=== PATIENT | female | born 1945 | race African-American/Black ===

== ENCOUNTER 2020-05-06 00:34 | Outpatient (CLI) | payer MEDICARE, SELFPAY ==
[2020-05-06 17:26] LABS: SARS-CoV-2 RNA PCR Negative
== END 2020-05-06 00:35 | disposition home or self-care (01) ==
LOC: ANHCOVIDDT 00:34
PROVIDERS: PCP Family Medicine; Visit Provider Internal Medicine Gastroenterology
DX: Z01.812 Encounter for preprocedural laboratory examination (principal); Z20.828 Contact with and (suspected) exposure to other viral communicable diseases
CPT/HCPCS: 87635; C9803; U0003

== ENCOUNTER 2020-05-08 01:49 | Day surgery (SDC) | payer MEDICARE, SELFPAY ==
[2020-05-02 13:32] VITALS: BMI 34.0
--- NOTE | 2020-05-07 13:09 | WPDANESEPPF ---
Anes - Initial Pre Proc Eval Procedure: Operation Date: 05/08/20 07:30 Proposed Procedures p Esophagogastroduodenoscopy & Colonoscopy - Magen Patrick MD Date/Time: 05/07/20 13:09 Surgeon: Magen Patrick MD Pre Op Diagnosis: Change in Bowel Habits, hx of Col Polyps, GERD Patient Data Age: 75 Gender: F Height: 1.61 m Weight: 88.5 kg Allergies Allergy/AdvReac Type Severity Reaction Status Date / Time adhesive tape Allergy Mild UNKNOWN Verified 05/08/20 06:25 prochlorperazine Allergy Mild SLURRED Verified 05/08/20 06:25 SPEECH,THICK TONGUE Sulfa (Sulfonamide Allergy Mild Rash Verified 05/08/20 06:25 Antibiotics) promethazine Allergy Unknown UNKNOWN Verified 05/08/20 06:25 codeine AdvReac Unknown VOMITING Verified 05/08/20 06:25 Home Medications Medication Instructions Recorded Confirmed Type omega-3 fatty acids 500 mg capsule 500 mg PO DAILY 06/27/19 05/02/20 History losartan 50 mg tablet 50 mg PO DAILY #90 tablet 08/23/19 05/02/20 Rx pravastatin 20 mg tablet 20 mg PO DAILY #90 tablet 08/23/19 05/02/20 Rx pen needle, diabetic 31 gauge x See Rx Instructions .ROUTE 11/12/19 05/02/20 Rx 1/4 .COMPLEX #100 each insulin degludec 100 unit/mL (3 See Rx Instructions .ROUTE 02/24/20 05/02/20 Rx mL) subcutaneous pen .COMPLEX #30 milliliter metformin 500 mg tablet 1,000 mg PO .COMPLEX #270 tablet 04/23/20 05/02/20 Rx Vitamin B3 25 mg PO DAILY 05/02/20 05/02/20 History aspirin [Aspirin Childrens] 81 mg PO DAILY 05/02/20 05/02/20 History pantoprazole 40 mg PO BID 05/02/20 05/02/20 History vitamin B complex [B 1 tablet PO DAILY 05/02/20 05/02/20 History Complex-Vitamin B12] Patient hx anesthesia problems: none Family hx anesthesia problems: none PMFSH Past Medical History Medical History (Updated 05/08/20 @ 07:29 by Magen Patrick MD) Essential hypertension Gastroesophageal reflux disease without esophagitis Hypothyroidism Irritable bowel syndrome with both constipation and diarrhea Lumbar disc disease with radiculopathy Mixed hyperlipidemia Rectal sphincter incontinence Type 2 diabetes mellitus with stage 3 chronic kidney disease and hypertension Vitamin D deficiency, unspecified Surgical History Surgical History Presence of artificial knee joint, bilateral Family History Family History Other Diabetes mellitus Family history of arthritis Family history of congestive heart failure Hypertension Social History Social History (Reviewed 03/27/20 @ 12:47 by Tamar Nix [facility]) Smoking status: Former smoker Tobacco type: cigarettes Second hand tobacco smoke exposure: No Smoking end date: 08/22/88 Alcohol intake: current Substance use: never Substance use type: does not use Spiritual care concerns: No Anes - Eval Final PreProcedure Day of Procedure 05/07/20 13:09 Patient weight: obese Heart: regular rate and rhythm Lungs: clear to auscultation and normal air movement Airway: Mallampati scale class II Neurological: alert and oriented Last oral intake: >/= 8 hours ASA classification: III Emergent: no Anesthetic plan: proceed Anesthesia type and monitoring: general GIVS and standard monitoring Informed Consent: The patient's anesthetic plan and its attendant risks and benefits were discussed with the patient/family/POA. Questions were solicited and answers provided to the satisfaction of the patient/family/POA.
[2020-05-08 06:27] VITALS: BP 134/75; PULSE 68; RESP 16; TEMP 36.3; O2SAT 100; BMI 34.3
[2020-05-08 06:54] LABS: Glucose Point of Care 73 (65-105)
--- NOTE | 2020-05-08 07:26 | WPDGICN ---
Assessment and Plan Assessment and plan (1) GERD (gastroesophageal reflux disease): Code(s): K21.9 - Gastro-esophageal reflux disease without esophagitis Status: Acute Assessment and Plan: Patient has ongoing epigastric discomfort substernal discomfort consistent with acid reflux. This appears poorly responsive to double dose proton pump inhibitor therapy. She does have a history of esophageal stricture in the past because of poor response to therapies follow-up EGD will be planned. Further recommendations will be given after endoscopy anti-reflux measures including elevating head of bed at night bland foods no late snacks are strongly encourage. (2) History of colon polyps: Code(s): Z86.010 - Personal history of colonic polyps Status: Acute Assessment and Plan: Because of prior history colon polyps follow-up colonoscopy every 4-5 years has been advised screening colonoscopy will be performed at this time. GI Consult Note Consult date/time: 05/08/20 07:26 HPI: Gabi Youngblood is a 75 year old female Seen in evaluation at the request of Dr. Natasha Brown. Patient presents for neoplasia screening colonoscopy. Her weight appetite bowel movements have been normal. She desires neoplasia screening. She has had colon polyps in the past most recently 4-5 years ago. patient also has significant ongoing acid reflux disease. She has a distant history of esophageal stricture by Dr. Jordon gusman in [place]. She has been maintained on Protonix 40 mg p.o. b.i.d.. She continues to have epigastric burning discomfort after almost all foods. This will occasional wake her at night has occasional emesis. She has had symptoms for at least 30 years but symptoms have worsened over the last 7-9 months. She denies any weight loss. She states spicy foods an empty stomach will worsen her discomfort. She has had no bleeding. Review of Systems Review of Systems: All systems reviewed & are unremarkable except as noted in HPI and below PMFSH Past Medical History Medical History Essential hypertension Gastroesophageal reflux disease without esophagitis Hypothyroidism Irritable bowel syndrome with both constipation and diarrhea Lumbar disc disease with radiculopathy Mixed hyperlipidemia Rectal sphincter incontinence Type 2 diabetes mellitus with stage 3 chronic kidney disease and hypertension Vitamin D deficiency, unspecified Surgical History Surgical History Presence of artificial knee joint, bilateral Family History Family History Other Diabetes mellitus Family history of arthritis Family history of congestive heart failure Hypertension Social History Social History Smoking status: Former smoker Tobacco type: cigarettes Second hand tobacco smoke exposure: No Smoking end date: 08/22/88 Alcohol intake: current Alcohol use details: 1 DRINK PER MONTH Substance use: never Substance use type: does not use Living arrangements: with family Spiritual care concerns: No Meds Home Medications and Allergies Home Medications Medication Instructions Recorded Confirmed Type omega-3 fatty acids 500 mg capsule 500 mg PO DAILY 06/27/19 05/02/20 History losartan 50 mg tablet 50 mg PO DAILY #90 tablet 08/23/19 05/02/20 Rx pravastatin 20 mg tablet 20 mg PO DAILY #90 tablet 08/23/19 05/02/20 Rx pen needle, diabetic 31 gauge x See Rx Instructions .ROUTE 11/12/19 05/02/20 Rx 1/4 .COMPLEX #100 each insulin degludec 100 unit/mL (3 See Rx Instructions .ROUTE 02/24/20 05/02/20 Rx mL) subcutaneous pen .COMPLEX #30 milliliter metformin 500 mg tablet 1,000 mg PO .COMPLEX #270 tablet 04/23/20 05/02/20 Rx Vitamin B3 25 mg PO DAILY 05/02/20 05/02/20 History aspirin [Aspirin Childr
[2020-05-08] MEDS: LACTATED RINGERS 1,000 ML 150 ML IV CONT (07:29)
[2020-05-08 08:04] VITALS: BP 106/43; PULSE 61; RESP 17; O2SAT 99
[2020-05-08 08:14] VITALS: BP 108/46; PULSE 64; RESP 20; O2SAT 100
[2020-05-08 08:15] LABS: Glucose Point of Care 68 (65-105)
[2020-05-08 08:24] VITALS: BP 103/71; PULSE 61; RESP 25; O2SAT 100
== END 2020-05-08 08:43 | disposition home or self-care (01) ==
PROVIDERS: PCP Family Medicine; Visit Provider Internal Medicine Gastroenterology
PROC: 0DJ08ZZ Inspection of Upper Intestinal Tract, Via Natural or Artificial Opening Endoscopic (ICD-10-PCS; CPT 43235; principal; 2020-05-08 07:30)
DX: Z12.11 Encounter for screening for malignant neoplasm of colon (principal); K57.30 Diverticulosis of large intestine without perforation or abscess without bleeding; K64.8 Other hemorrhoids; K59.00 Constipation, unspecified; Z86.010 Personal history of colon polyps; K44.9 Diaphragmatic hernia without obstruction or gangrene; K21.0 Gastro-esophageal reflux disease with esophagitis; Q39.4 Esophageal web; K58.2 Mixed irritable bowel syndrome; E03.9 Hypothyroidism, unspecified; I12.9 Hypertensive chronic kidney disease with stage 1 through stage 4 chronic kidney disease, or unspecified chronic kidney disease; E11.22 Type 2 diabetes mellitus with diabetic chronic kidney disease; N18.3 Chronic kidney disease, stage 3 (moderate); E55.9 Vitamin D deficiency, unspecified; E78.2 Mixed hyperlipidemia; M51.16 Intervertebral disc disorders with radiculopathy, lumbar region; Z87.891 Personal history of nicotine dependence; Z79.82 Long term (current) use of aspirin; Z79.84 Long term (current) use of oral hypoglycemic drugs; E66.9 Obesity, unspecified; Z68.34 Body mass index [BMI] 34.0-34.9, adult
CPT/HCPCS: 43450; G0105; J2704; J7120

== ENCOUNTER 2020-06-18 08:31 | Outpatient (CLI) | payer MEDICARE, SELFPAY ==
--- NOTE | ~2020-06-18 | MM_ITS ---
EXAMINATION: MM screening [facility] BI w maria antonia HISTORY: Screening mammogram TECHNIQUE: Craniocaudal and mediolateral oblique 3-D tomosynthesis images were obtained and synthetic 2-D images were generated. CAD analysis was submitted and interpreted. COMPARISON: 06/09/2019, 04/10/2018, 03/28/2017 BREAST PARENCHYMAL COMPOSITION: The breasts are heterogeneously dense, which may obscure small masses . FINDINGS: There is no evidence of suspicious mass, calcification, or architectural distortion to sugg est malignancy in either breast. There has been no suspicious interval change. IMPRESSION: 1. No mammographic evidence of malignancy. 2. Recommend routine screening mammography in one year. BI-RADS Category 1: Negative Reviewed, dictated and finalized at location A.
== END 2020-06-18 08:32 | disposition home or self-care (01) ==
LOC: ANHIMG 08:34
PROVIDERS: PCP Family Medicine; Visit Provider Family Medicine
DX: Z12.31 Encounter for screening mammogram for malignant neoplasm of breast (principal)
CPT/HCPCS: 77063; 77067

== ENCOUNTER 2021-09-15 09:48 | Outpatient (CLI) | payer MEDICARE, SELFPAY ==
--- NOTE | ~2021-09-15 | US_ITS ---
EXAMINATION: US venous doppler [facility] EXAM DATE: 09/15/2021 10:17 INDICATION: M79.89 - Other specified soft tissue . TECHNIQUE: Multiple grayscale, color flow and Doppler images of the left lower extremity deep venous system were obtained and reviewed. There is no prior study for comparison. FINDINGS: The left common femoral, femoral and profunda veins demonstrate normal color flow, respirat ory variation, augmentation and compressibility. Compressibility, color flow confirmed within the le ft popliteal, posterior tibial, peroneal, and greater saphenous veins. IMPRESSION: No left lower extremity deep venous thrombosis. Reviewed, dictated and finalized at location A. C CONSULTANT
== END 2021-09-15 09:49 | disposition home or self-care (01) ==
LOC: ANHIMG 09:51
PROVIDERS: PCP Family Medicine; Visit Provider Family Medicine
DX: M79.89 Other specified soft tissue disorders (principal)
CPT/HCPCS: 93971

== ENCOUNTER 2021-11-25 08:17 | Outpatient (CLI) | payer MEDICARE, SELFPAY ==
--- NOTE | ~2021-11-25 | MM_ITS ---
EXAMINATION: MM screening [facility] BI w maria antonia HISTORY: Screening TECHNIQUE: Craniocaudal and mediolateral oblique 3-D tomosynthesis images were obtained and synthetic 2-D images were generated. CAD analysis was submitted and interpreted. COMPARISON: Comparison to multiple prior studies sequentially, with oldest reviewed study dated 11/06. BREAST PARENCHYMAL COMPOSITION: There are scattered areas of fibroglandular density. FINDINGS: There is no evidence of suspicious mass, calcification, or architectural distortion to sugg est malignancy in either breast. There has been no suspicious interval change. IMPRESSION: 1. No mammographic evidence of malignancy. 2. Recommend routine screening mammography in one year. BI-RADS Category 1: Negative Reviewed, dictated and finalized at location A.
== END 2021-11-25 08:18 | disposition home or self-care (01) ==
LOC: ANHIMG 08:20
PROVIDERS: PCP Family Medicine; Visit Provider Family Medicine
DX: Z12.31 Encounter for screening mammogram for malignant neoplasm of breast (principal)
CPT/HCPCS: 77063; 77067

== ENCOUNTER 2021-12-21 09:31 | Outpatient (CLI) | payer MEDICARE, SELFPAY ==
--- NOTE | ~2021-12-21 | US_ITS ---
EXAMINATION: US renal BI DATE: 12/21/2021 12:36 INDICATION: Chronic kidney disease TECHNIQUE: Multiple ultrasound grayscale images of the kidneys were obtained. COMPARISON: 01/13/2016 FINDINGS: The right kidney measures 9.4 x 4.8 x 4.7 cm. The left kidney measures 9.8 x 4.8 x 4.7 cm. The kidney s demonstrate normal echogenicity. 3.5 cm exophytic anechoic cyst at the lower pole of the left kidne y. Additional smaller 1.5 cm exophytic cyst in the lower pole of the left kidney. There is no hydrone phrosis in either kidney. No stones identified. The bladder is normal. IMPRESSION: 1. A couple simple appearing left ovarian cyst. Otherwise normal kidneys with no hydronephrosis. Reviewed, dictated and finalized at location A.
== END 2021-12-21 09:32 | disposition home or self-care (01) ==
PROVIDERS: PCP Family Medicine; Visit Provider Family Medicine
DX: N18.30 Chronic kidney disease, stage 3 unspecified (principal); N28.1 Cyst of kidney, acquired
CPT/HCPCS: 76775

== ENCOUNTER 2022-09-01 13:34 | Outpatient (CLI) | payer MEDICARE, SELFPAY ==
--- NOTE | 2022-09-01 13:58 | ECG_ITS ---
Measurements Intervals [place] Rate: 67 P: 49 WY: 142 QRS: -33 QRSD: 96 T: 57 QT: 396 QTc: 419 Interpretive Statements SINUS RHYTHM LEFT AXIS DEVIATION POSSIBLE LEFT ATRIAL ENLARGEMENT VOLTAGE CRITERIA FOR LVH BORDERLINE ECG NO PREVIOUS ECG AVAILABLE FOR COMPARISON Electronically Signed On 09-01-2022 14:51:41 CURATOR OF MANUSCRIPTS by Marcelo Salvador D.O.
== END 2022-09-01 13:35 | disposition home or self-care (01) ==
PROVIDERS: PCP Family Medicine; Visit Provider Family Medicine
DX: I10 Essential (primary) hypertension (principal); R94.31 Abnormal electrocardiogram [ECG] [EKG]
CPT/HCPCS: 93005

== ENCOUNTER 2022-09-22 14:24 | Outpatient (CLI) | payer MEDICARE, SELFPAY ==
--- NOTE | ~2022-09-22 | MR_ITS ---
MRI of the left shoulder Technique: Axial proton-density fat-sat images, coronal proton density fat-sat and T2 fat-sat images, and sagittal T1-weighted and T2 fat-sat images were acquired. Clinical History: Injury Findings: There is moderate AC joint degenerative change, with moderate subacromial spur. Coracoclavi cular, coracoacromial, and coracohumeral ligaments appear intact. There is mild supraspinatus and infraspinatus tendinosis, without partial or full-thickness tear. Sub scapularis tendon is intact with moderate tendinosis. Tendon of the long head of the biceps is probab ly intact, with probable intra-articular tendinosis. Probable degenerative tearing of the superior labrum. There is moderate to advanced degenerative change of the glenohumeral joint, with diffuse joint space narrowing and high-grade chondromalacia, with associated inferomedial humeral head osteophyte. Infer ior glenohumeral ligament is intact. There is minimal joint effusion of the glenohumeral joint. There is however prominent fluid distention of the subacromial/subdeltoid bursa, consistent with bursitis. No muscle atrophy or edema identified. Impression: Diffuse, moderate rotator cuff tendinosis, without partial or full-thickness tear. Subacromial/subdeltoid bursitis. Moderate to advanced glenohumeral joint osteoarthritis, as detailed above. Probable degenerative tearing of the superior labrum. Moderate AC joint degenerative change. Reviewed, dictated and finalized at [facility]. HIGH SCHOOL TEACHER Impression: Diffuse, moderate rotator cuff tendinosis, without partial or full-thickness te ar. Subacromial/subdeltoid bursitis. Moderate to advanced glenohumeral joint osteoarthritis, as detailed above. Probable degenerative tearing of the superior labrum. Moderate AC joint degenerative change.
== END 2022-09-22 14:25 | disposition home or self-care (01) ==
PROVIDERS: PCP Family Medicine; Visit Provider Orthopaedic Surgery
DX: S49.92XA Unspecified injury of left shoulder and upper arm, initial encounter (principal); X58.XXXA Exposure to other specified factors, initial encounter; M19.012 Primary osteoarthritis, left shoulder
CPT/HCPCS: 73221

== ENCOUNTER 2022-12-12 08:37 | Outpatient (CLI) | payer MEDICARE, SELFPAY ==
--- NOTE | ~2022-12-12 | MR_ITS ---
EXAMINATION: MR cervical spine wo con DATE: 12/12/2022 09:39 INDICATION: Cervical radiculopathy. TECHNIQUE: Magnetic resonance imaging (MRI) of the cervical spine was performed without intravenous c ontrast. COMPARISON: Cervical spine MRI 06/10/2015 FINDINGS: There is 3 degrees levocurvature of cervical spine. There is mild kyphosis of upper cervica l spine. There is 2 mm anterolisthesis of C7 on T1. Vertebral body heights are normal. There is sever fran decreased disc height from C3-C4 through C6-C7. The spinal cord signal intensity is normal. The f ollowing disc levels are specifically discussed: C2-C3: The disc does not extend beyond the endplate margin. There is no uncovertebral joint osteoarth ritis. There is severe bilateral facet joint osteoarthritis. There is mild left neural foraminal sten osis. There is no central canal stenosis. C3-C4: The disc is bulging. There is severe bilateral uncovertebral joint osteoarthritis. There is se neva right and moderate left facet joint osteoarthritis. There is moderate right and mild left neural foraminal stenosis. There is mild central canal stenosis. C4-C5: The disc is bulging. There is severe bilateral uncovertebral joint osteoarthritis. There is se neva bilateral facet joint osteoarthritis. There is severe right and moderate left neural foraminal s tenosis. There is mild central canal stenosis. C5-C6: The disc is bulging. There is severe bilateral uncovertebral joint osteoarthritis. There is se neva bilateral facet joint osteoarthritis. There is moderate bilateral neural foraminal stenosis. The re is mild central canal stenosis. C6-C7: The disc is bulging. There is severe bilateral uncovertebral joint osteoarthritis. There is mo derate bilateral facet joint osteoarthritis. There is moderate bilateral neural foraminal stenosis. T here is mild central canal stenosis. C7-T1: There is a central extrusion. There is no uncovertebral joint osteoarthritis. There is severe bilateral facet joint osteoarthritis. There is mild bilateral neural foraminal stenosis. There is mil d central canal stenosis. IMPRESSION: 1. Severe cervical spondylosis, stable from 06/10/2015. Reviewed, dictated and finalized at location A.
== END 2022-12-12 08:38 | disposition home or self-care (01) ==
PROVIDERS: PCP Family Medicine; Visit Provider Family Medicine
DX: M47.812 Spondylosis without myelopathy or radiculopathy, cervical region (principal)
CPT/HCPCS: 72141

== ENCOUNTER 2023-03-17 09:12 | Outpatient (CLI) | payer MEDICARE, SELFPAY ==
--- NOTE | ~2023-03-17 | MM_ITS ---
EXAMINATION: MM screening [facility] BI w maria antonia HISTORY: Screening mammogram TECHNIQUE: Craniocaudal and mediolateral oblique 3-D tomosynthesis images were obtained and synthetic 2-D images were generated. CAD analysis was submitted and interpreted. COMPARISON: 11/25/2021, 06/18/2020, 06/09/2019 BREAST PARENCHYMAL COMPOSITION: The breasts are heterogeneously dense, which may obscure small masses . FINDINGS: No suspicious mass, calcification, or architectural distortion are identified in either nam ast to suggest malignancy. There has been no suspicious interval change. IMPRESSION: 1. No mammographic evidence of malignancy. 2. Recommend routine screening mammography in one year. BI-RADS Category 1: Negative Reviewed, dictated and finalized at location A.
== END 2023-03-17 09:13 | disposition home or self-care (01) ==
PROVIDERS: PCP Family Medicine; Visit Provider Family Medicine
DX: Z12.31 Encounter for screening mammogram for malignant neoplasm of breast (principal)
CPT/HCPCS: 77063; 77067

== ENCOUNTER 2023-10-31 14:31 | Outpatient (CLI) | payer MEDICARE, SELFPAY ==
--- NOTE | ~2023-10-31 | XR_ITS ---
EXAMINATION: XR wrist RT min 3V DATE: 10/31/2023 14:48 INDICATION: Right wrist and scaphoid pain TECHNIQUE: Posteroanterior, ulnar deviation, oblique, and lateral views of the right wrist were obtai michael. COMPARISON: none FINDINGS: There is widening of the scapholunate interval on the ulnar deviation view consistent with scapholuna te ligament insufficiency. 2.5 mm ulnar positive variance. Bone alignment is otherwise normal. No fra cture. 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 Moderate osteoarthritis at the distal radioulnar, first carpal metacarpal and triscap he joints and mild osteoarthritis at several of the visualized metacarpophalangeal and interphalangea l joints. Prominent subarticular cystlike changes at the lunate fossa of the distal radius and at the proximal pole of the scaphoid. Diffuse osteopenia. IMPRESSION: 1. Widening of the scapholunate interval on the ulnar deviation view consistent with scapholunate lig ament insufficiency. 2. 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 Reviewed, dictated and finalized at location B. IMPRESSION: 1. Widening of the scapholunate interval on the ulnar deviation view consistent with scapholunate ligament insufficiency. 2. Polyarticular osteoarthritis, atypically severe at the wrist joint and lunoc apitate articulation of the midcarpal joint which projects along the setting of scapholunate ligament insufficiency would be consistent with secondary scaphol unate advanced collapse (SLAC) wrist.
== END 2023-10-31 14:32 | disposition home or self-care (01) ==
LOC: ANHIMG 14:34
PROVIDERS: PCP Family Medicine; Visit Provider Physician Assistant
DX: M19.031 Primary osteoarthritis, right wrist (principal)
CPT/HCPCS: 73110

== ENCOUNTER 2024-03-20 13:57 | Outpatient (CLI) | payer MEDICARE, SELFPAY ==
--- NOTE | ~2024-03-20 | MM_ITS ---
EXAMINATION: MM screening [facility] BI w maria antonia HISTORY: Screening TECHNIQUE: Craniocaudal and mediolateral oblique 3-D tomosynthesis images were obtained and synthetic 2-D images were generated. CAD analysis was submitted and interpreted. COMPARISON: Comparison to multiple prior studies sequentially, with oldest reviewed study dated 02/2017. BREAST PARENCHYMAL COMPOSITION: Not dense: There are scattered areas of fibroglandular density. FINDINGS: There is no evidence of suspicious mass, calcification, or architectural distortion to sugg est malignancy in either breast. There has been no suspicious interval change. IMPRESSION: 1. No mammographic evidence of malignancy. 2. Recommend routine screening mammography in one year. BI-RADS Category 1: Negative Reviewed, dictated and finalized at location B.
== END 2024-03-20 13:58 | disposition home or self-care (01) ==
LOC: ANHIMG 13:58
PROVIDERS: PCP Family Medicine; Visit Provider Family Medicine
DX: Z12.31 Encounter for screening mammogram for malignant neoplasm of breast (principal)
CPT/HCPCS: 77063; 77067

== ENCOUNTER 2024-04-05 07:57 | Outpatient (CLI) | payer MEDICARE, SELFPAY | END 2024-04-05 07:58 | disposition home or self-care (01) | LOC: ANHAUDIO 07:57 | PROVIDERS: PCP Family Medicine; Visit Provider Family Medicine | DX: H90.3 Sensorineural hearing loss, bilateral (principal) | CPT/HCPCS: 92557; 92567 ==

== ENCOUNTER 2025-04-25 13:56 | Outpatient (CLI) | payer MEDICARE, SELFPAY ==
--- NOTE | ~2025-04-25 | MM_ITS ---
EXAMINATION: MM screening [facility] BI w maria antonia HISTORY: Screening TECHNIQUE: Craniocaudal and mediolateral oblique 3-D tomosynthesis images were obtained and synthetic 2-D images were generated. CAD analysis was submitted and interpreted. COMPARISON: Mammograms from 03/20/2024 and 03/17/2023 BREAST PARENCHYMAL COMPOSITION: The breasts are heterogeneously dense, which may obscure small masses. FINDINGS: There is no evidence of suspicious mass, calcification, or architectural distortion to suggest malignancy. There has been no suspicious interval change. IMPRESSION: 1. No mammographic evidence of malignancy. Recommend routine screening mammography in one year. BI-RADS Category 2: Benign finding(s) Reviewed, dictated and finalized at location Q. IMPRESSION: 1. No mammographic evidence of malignancy. Recommend routine screening mammogra phy in one year. BI-RADS Category 2: Benign finding(s)
--- OUTSIDE RECORDS SUMMARY | 2025-04-25 14:10 | XMS_ITS | Encounter Summary ---
Author Organization [facility] Address [address] [place] [address] Phone Care Team Providers Care Thread Roller Name Role Phone Natasha Brown MD Primary Care Provider [phone] Josue Vieira DO Unavailable [phone] Natasha Brown MD Primary Care Provider [phone] Encounter Details Date Type Department Care Team (Late st Contact Info) Description 02/09/2021 Telephone [facility] Oncology [facility] [facility] 7th [place] [address] [place] [address] Blanca Roldan Social History Tobacco Use Types Packs/Day Years Used Date Smoking Tobacco: Never Assessed Comments Unknown Sex and Gender Information Value Date Recorded Sex Assigned at Not on file Legal Sex Female 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
--- OUTSIDE RECORDS SUMMARY | 2025-04-25 14:10 | XMS_ITS | Clinical Summary ---
Author Organization [facility] Address [address] [place] [address] Care Team Providers Care Journeyman Lineman Name Role Phone DarielJosue Alex DO Unavailable [phone] Natasha Brown MD Primary Care Provider [phone] Allergies Active Allergy Reactions Criticality Noted Date Comments Adhesive Other (See comments) Low 05/23/2019 Blisters from bandaids Please use paper tape Codeine Nausea only Low 05/23/2019 Prochlorperazine Angioedema,Swelling High 12/09/2017 Swelling Swollen tongue Slurred speech Promethazine Chest tightness,Palpitati ons Medium 12/09/2017 Chest Pain Rapid heart rate Sulfa (Sulfonamide Antibiotics) Medications losartan (COZAAR) 50 mg tablet Take 1 tablet (50 mg total) by mouth daily Active aspirin 81 mg enteric coated tablet Take 1 tablet (81 mg total) by mouth daily Active metFORMIN (GLUCOPHAGE) 500 mg tablet 1 Active cholecalciferol (VITAMIN D-3) 25 mcg (1,000 unit) tablet Take 1 tablet (1,000 Units total) by mouth daily Active cyanocobalamin (Vitamin B-12) 1,000 mcg tablet Take 1 tablet (1,000 mcg total) by mouth daily Active docosahexaenoic acid-epa 120-180 mg capsule Take 1,000 mg by mouth 2 (two) times a day Active biotin 300 mcg tablet Take 1 tablet by mouth daily Active docusate sodium (COLACE) 100 mg capsuleIndicati ons:constipatio n Take 1 capsule (100 mg total) by mouth daily Active pravastatin (PRAVACHOL) 20 mg tablet 1 Active multivit,iron,m inerals/lutein (CENTRUM SILVER ULTRA WOMEN'S ORAL) Take by mouth Active sucralfate (CARAFATE) 1 gram tablet Take 1 tablet (1 g total) by mouth daily Active esomeprazole DR (NexIUM) 40 mg capsule Take 1 capsule (40 mg total) by mouth daily before breakfast Active propylene glycoL (Systane Balance) 0.6 % drops Administer into affected eye(s) Active TRESIBA 100 unit/mL (3 mL) pen for injection 1 Active blood glucose diagnostic strip Active traZODone (DESYREL) 50 mg tablet TAKE 1 TO 2 TABLETS BY MOUTH EVERY DAY AT BEDTIME NEEDED FOR INSOMNIA 2 Active traMADoL (ULTRAM) 50 mg tablet Take 1 tablet (50 mg total) by mouth every 6 (six) hours as needed 2 Active Active Problems Problem Noted Date Diagnosed Date Iron deficiency anemia due to chronic blood loss 02/26/2021 Chronic infection of sinus 01/24/2014 Encounters Date Type Department Care Team Description 02/01/2025 11:00 AM [facility] [place] Office [facility] 1 OP Physical Therapy [address] [place] [id number] Simeon Walton, PT Unilateral primary osteoarthritis of first carpometacarpal joint, right hand (Primary Dx) 01/29/2025 9:30 AM [facility] Medical Office [facility] 1 OP Physical Therapy [address] [place] [id number] Simeon Walton, PT Unilateral primary osteoarthritis of first carpometacarpal joint, right hand (Primary Dx) 01/24/2025 11:15 AM [facility] [place] Office [facility] 1 OP Physical Therapy [address] [place] [phone] Dimas Eastman Unilateral primary osteoarthritis of first carpometacarpal joint, right hand (Primary Dx) from Last 3 Months Immunizations Immunization Administration Dates Next Due Influenza, Quadrivalent, Hig h Dose, Preservative Free, Intrr 06/04/2020 Pfizer SARS-CoV-2 Monovalent Vaccination (12+ Yrs) PURPLE 11/01/2020,10/08/2020 Surgical History Surgery Date Site/Laterality Comments COLONOSCOPY UPPER GASTROINTESTINAL ENDOSCOPY HYSTERECTOMY CHOLECYSTECTOMY REPLACEMENT TOTAL KNEE BILATERAL Medical History Medical History Date Comments Diabetes mellitus (HCC) type 2 Anemia Hypertension Aplastic anemia Osteoarthritis of back Hyperlipidemia Reflux esophagitis Hiatal hernia Esophageal web Family History Medical History Relation Name Comments Heart attack Brother Pulmonary embolism Father blunt force trauma, tornado Maternal Grandmother blunt force trauma, tornado Dementia Mother Anemia Paternal Grandmother Leukemia Paternal Grandmother Relation Name Status Comments Brother Father Maternal Grandmother Mother Paternal Grandmother Social History Tobacco Use Types Packs/Day Years Used Date Smoking Tobacco: Former Cigarettes 1 25 Smokeless Tobacco: Never AUDIT-C Answer Date Recorded Q1: How often do you have a drink containing alc ohol? 2-4 times a month 02/27/2021 Q2: How many drinks containi ng alcohol do you have on a typical day when you are drinking? 1 or 2 02/27/2021 Q3: How often do you have si x or more drinks on one occasion? 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 file Not on file Not on omero e Retired Not on file Not on file Not on file Obstetrics History Last Filed Vital Signs Vital Sign Reading Time Taken Comments Blood Pressure 164/84 06/23/2023 11:16 AM CDT Pulse 69 06/23/2023 11:16 AM CDT Temperature 36.5 C (97.7 F) 06/23/2023 11:16 AM CDT Respiratory Rate 18 06/23/2023 11:16 AM CDT Oxygen Saturation 97% 06/23/2023 11:16 AM CDT Inhaled Oxygen Concentration - - Weight 89.4 kg (197 lb) 06/23/2023 11:16 AM CDT with shoes Height 157.5 cm (5' 2) 06/23/2023 11:16 AM CDT Body Mass Index 36.03 06/23/2023 11:16 AM CDT Plan of Treatment Health Maintenance Due Date Last Done Comments Depression Screening 1945 Fall Risk Assessment 1945 Hepatitis C Screening 1945 Osteoporosis Screening-Bone Density Scan 1945 Hepatitis B Screening 1965 Pneumococcal vaccine 65+ (1 of 1 - PCV) 1997 Zoster Vaccine (1 of 2) 1997 Well Visit 65+ 01/18/2012 Covid-19 Vaccine ( - season) 2024, 10/08/2020 Influenza Vaccine (#1) 2025 06/25/2024, 2019 DTaP/Tdap/Td Vaccine (2 - Td or Tdap) 05/11/2034 [place] [address] [facility] Address: [address] [phone] [facility]IC[facility] Address: [address] [address] [place] [address] Care Teams Journeyman Lineman Relationship Specialty Start Date End Date Natasha Brown MD PCP - General Family Medicine 06/11/22 Josue Vieira DO Medical Oncologist/Classroom Technology Coach Hematology and Oncology 03/02/21
--- OUTSIDE RECORDS SUMMARY | 2025-04-25 14:10 | XMS_ITS | Clinical Summary ---
Author Organization [facility] Address [address] [place] [address] Phone Care Team Providers Care Brokerage Clerk Name Role Phone Natasha Brown MD Primary Care Provider [phone] Negro Samayoa MD Unavailable [phone] Magen Plunkett MD Unavailable [phone] Allergies Active Allergy Reactions Criticality Noted Date Comments Codeine Nausea Low 05/23/2019 Prochlorperazine Swelling High 12/09/2017 Swelling Swollen tongue Slurred speech Swollen tongue Slurred speech Promethazine Other (see Comments),Palpitatio ns Medium 12/09/2017 Chest Pain Rapid heart rate Rapid heart rate Sulfa Antibiotics Rash Low 05/23/2019 Wound Dressing Adhesive Other (see Comments) Blisters from bandaids Please use paper tape Medications aspirin EC 81 MG Tablet Delayed Response Take 81 mg by mouth daily. Active Pyridoxine HCl (VITMAIN B-6) 100 MG Tablet Take by mouth daily. Active Multiple Vitamins-Minera ls (CENTRUM SILVER PO) Take by mouth daily. Active esomeprazole (NexIUM) 40 MG CAPSULE DELAYED RELEASE Take 40 mg by mouth. Active losartan (COZAAR) 100 MG Tablet Take 100 mg by mouth daily. 3 Active metFORMIN (GLUCOPHAGE) 500 MG Tablet Take 500 mg by mouth. 1 Active pravastatin (PRAVACHOL) 40 MG Tablet 2 Active sucralfate (CARAFATE) 1 GM Tablet Take 1 g by mouth. Active Vitamin D3 1000 UNIT Tablet Take 25 mcg by mouth. Active vitamin E (TOCOPHEROL) 1000 UNIT Capsule Take 1,000 Units by mouth. Active polyethyl glycol-propyl glycol (Systane) 0.4-0.3 % Solution Place 2 Drops in affected eye(s). Active insulin degludec (Tresiba FlexTouch) 100 UNIT/ML Solution Pen-injector INJECT BY SUBCUTANEOUS ROUTE 20 UNITS DAILY 8 Active baclofen (LIORESAL) 10 MG Tablet Take 10 mg by mouth as needed for Muscle spasms. 3 Active diazePAM (VALIUM) 10 MG Tablet every 8 hours as needed for Anxiety or Agitation. 3 Active HYDROcodone-john taminophen (NORCO) 5-325 MG Tablet Take by mouth as needed for Moderate or more severe pain. 4 Active traMADol (ULTRAM) 50 MG Tablet Take 50 mg by mouth nightly. 2 Active traZODone (DESYREL) 50 MG Tablet TAKE 1 TO 2 TABLETS BY MOUTH EVERY DAY AT BEDTIME NEEDED FOR INSOMNIA 2 Active amLODIPine (NORVASC) 2.5 MG Tablet Take 2.5 mg by mouth daily. 5 Active Coenzyme Q10 150 MG Capsule Take 150 mg by mouth. Active Blood Glucose Monitoring Suppl (OneTouch Verio Flex System) w/Device Kit DIRECTED FOUR TIMES DAILY 5 Active OneTouch Ultra Strip DIRECTED FOUR TIMES DAILY 5 Active Lancets (OneTouch Delica Plus [id number]) Misc DIRECTED FOUR TIMES DAILY 5 Active dicyclomine (BENTYL) 10 MG Capsule TAKE 1 CAPSULE BY MOUTH THREE TIMES DAILY NEEDED FOR ABDOMINAL DISCOMFORT 5 Active Amoxicillin 500 MG Tablet Take 500 mg by mouth as needed for Other. 5 Active epoetin conrado (EPOGEN;PROCRIT ) 98295 UNIT/ML Solution by Subcutaneous route. Active Active Problems Problem Noted Date Diagnosed Date HTN (hypertension) 07/25/2024 Anemia due to stage 3b chronic kidney disease Iron deficiency anemia 05/23/2024 Encounters Date Type Department Care Team Description 04/18/2025 9:15 AM CDT Clinical Support [facility] [address] [phone] Nurse, [facility] [place] Anemia due to stage 3b chronic kidney disease (HCC) (Primary Dx) 04/18/2025 9:00 AM CDT Lab [facility] [address] [phone] Lab, [facility] [place] Anemia due to stage 3b chronic kidney disease (HCC); Iron deficiency anemia, unspecified iron deficiency anemia type 04/18/2025 Travel 04/12/2025 Telephone [facility] [address] [phone] Magen Plunkett MD 03/20/2025 9:45 AM CDT Clinical Support [facility] [address] [phone] Nurse, [facility] [place] Anemia due to stage 3b chronic kidney disease (HCC) (Primary Dx) 03/20/2025 9:30 AM CDT Office Visit [facility] [address] [phone] Eevtte Fallon APRN, CNP Anemia due to stage 3b chronic kidney disease (HCC) (Primary Dx); Iron deficiency anemia, unspecified iron deficiency anemia type 03/20/2025 9:15 AM CDT Lab [facility] [address] [phone] Lab, [facility] [place] Anemia due to stage 3b chronic kidney disease (HCC) 03/20/2025 Travel 02/20/2025 9:45 AM CDT Lab [facility] [address] [phone] Lab, [facility] [place] Anemia due to stage 3b chronic kidney disease (HCC) 02/20/2025 Travel 01/23/2025 10:00 AM CDT Clinical Support [facility] [address] [phone] Nurse, [facility] [place] Anemia due to stage 3b chronic kidney disease (HCC) (Primary Dx) 01/23/2025 9:45 AM CDT Office Visit [facility] [address] [phone] Carlota Bloom APRN, ESCALATOR INSTALLER Anemia due to stage 3b chronic kidney disease (HCC) (Primary Dx); Iron deficiency anemia, unspecified iron deficiency anemia type 01/23/2025 Telephone [facility] [address] [phone] Magen Plunkett MD [employer] / [employer] for insurance 01/23/2025 Travel from Last 3 Months Immunizations Immunization Administration Dates Next Due Influenza, high-dose, trivalent, PF 11/0 11/2023,06/18/2019,06/13/2018, 017 TDAP Vaccine 05/11/2024 Social History Tobacco Use Types Packs/Day Years Used Date Smoking Tobacco: Former Cigarettes Q uit: 1989 Smokeless Tobacco: Never Tobacco Cessation:Counseling Given: Not Answered Alcohol Use Standard Drinks/Week Comments Yes 0 (1 standard drink = 0.6 oz pur e alcohol) wine 2x a week Comments Unknown Sex and Gender Information Value Date Recorded Sex Assigned at Not on file Legal Sex Female 12:17 AM CDT Gender Identity Not on file Sexual Orientation Not on file Last Filed Vital Signs Vital Sign Reading Time Taken Comments Blood Pressure 138/84 04/18/2025 9:35 AM CDT Pulse 69 04/18/2025 9:35 AM CDT Temperature 36.6 C (97.9 F) 04/18/2025 9:35 AM CDT Respiratory Rate 18 04/18/2025 9:35 AM CDT Oxygen Saturation 99% 04/18/2025 9:35 AM CDT Inhaled Oxygen Concentration - - Weight 81.6 kg (180 lb) 04/18/2025 9:35 AM CDT Height 160 cm (5' 3) 04/18/2025 9:35 AM CDT Body Mass Index 31.89 04/18/2025 9:35 AM CDT Plan of Treatment Upcoming Encounters Date Type Department Care Team (Late st Contact Info) Description 05/15/2025 9:15 AM CDT Lab [facility] [address] [phone] Lab, Marika Camacho [place] 05/15/2025 9:30 AM CDT Office Visit [facility] [address] [phone] Magen Plunkett MD [address] [place] [phone] 05/15/2025 9:45 AM CDT Clinical Support [facility] [address] [phone] Nurse, [facility] Health Maintenance Due Date Last Done Comments DEXA Bone Density 1945 Hepatitis C Virus (HCV) Screening 1945 Respiratory Syncytial Virus (RSV) Immunization (Adult) (1 - 1-dose 75+ series) 2022 Influenza Immunization (#1) 04/22/20250 11/2023, 06/10/2023, 05/31/2022, Additional history exists SARS-COV-2 Immunization ( season) 2025 06/25/2024, 06/10/2023, 07/01/2022, Additional history exists Td Immunization Every 10 Years (Adults With 1 Tdap) 05/11/2034 05/11/2024 Pneumococcal Immunization (50+ years) Completed 06/13/2018, 06/09/2016 Zoster Immunization Completed 04/09/2023, 3 DTaP/Tdap/Td Immunization Discontinued 05/11/2024 TdaP Immunization Discontinued 05/11/2024 Hepatitis B Immunization Aged Out No longer eligible based on patient's age to complete this topic Human Papillomavirus (HPV) Immunization Aged Out No longer eligible based on patient's age to complete this topic Meningococcal Immunization (ACWY) Aged Out No longer eligible based on patient's age to complete this topic Rotavirus Immunization Aged Out No lo nger eligible based on patient's age to complete this topic Procedures Procedure Name Priority Date/Time Associated Diagnosis Comments CBC WITH AUTO DIFF OH Routine 04/18/2025 8:58 AM CDT IRON W/ IRON BINDING CAPACITY OH Routine 04/18/2025 8:58 AM CDT Anemia due to stage 3b chronic kidney disease (HCC) FERRITIN Routine 04/18/2025 8:58 AM CDT Anemia due to stage 3b chronic kidney disease (HCC) CBC WITH AUTO DIFF OH Routine 03/20/2025 9:11 AM CDT CBC WITH AUTO DIFF OH Routine 02/20/2025 9:41 AM CDT CMP (COMPREHENSIVE METABOLIC PANEL) Routine 02/20/2025 9:41 AM CDT Anemia due to stage 3b chronic kidney disease (HCC) CBC WITH AUTO DIFF OH Routine 01/23/2025 9:38 AM CDT Anemia due to stage 3b chronic kidney disease (HCC) from Last 3 Months Results * IRON W/ IRON BINDING CAPACITY OH (04/18/2025 8:58 AM CDT) IRON 90 50 - 212 ug/dL [facility] UIBC 187 155 - 355 ug/dL [facility]ULING [facility]MINIST[facility] TIBC 277 261 - 478 ug/dl [facility] % Saturation 32 20 - 50 % [facility] 04/18/2025 8:58 AM CDT Narrative [facility]UL[facility] ADMINISTR[facility] - 04/18/2025 9:34 AM CDT Release to patient->Immediate us Magen Plunkett MD LAB SEND OUTS Final Resul t [facility] [address] [place] [place] [address], [place] [phone] * (ABNORMAL) CBC WITH AUTO DIFF OH (04/18/2025 8:58 AM CDT) Only the most recent of4 resultswithin the time period is included. WBC 8.4 4.0 - 10.0 10*3/uL [facility] HGB 10.7(L) 11.2 - 15.7 g/dL [facility] HCT 33.4(L) 34.1 - 44.9 % [facility]MINIST[facility] PLT 230 163 - 369 10*3/uL [facility]IST[facility] MPV 8.6(L) 9.4 - 12.4 fL [facility] RBC 3.44(L) 3.93 - 5.22 10*6/uL [facility]MINIST[facility] MCV 97(H) 79 - 95 fL [facility]MINIST[facility] MCH 31.1 25.6 - 32.2 pg [facility]ULING ADMINISTR[facility] MCHC 32.0(L) 32.2 - 36.5 g/dL [facility] SCHEDULING ADMINISTR[facility] RDW 14.2 11.6 - 14.4 % [facility] Neutrophils % 68.0(H) 36.0 - 66.0 % [facility] Lymphocytes % 21.1 19.0 - 40.0 % [facility] Monocytes % 8.1 4.1 - 12.1 % [facility]IST[facility] Eosinophils % 1.9 0.0 - 3.5 % [facility] Basophils % 0.5 0.0 - 1.0 % [facility]ING ADMINISTR[facility] Absolute Neutrophils 5.8 1.4 - 6.6 10*3/uL [facility] Absolute Lymphocytes 1.8 0.8 - 4.0 10*3/uL [facility] Absolute Monocytes 0.7 0.2 - 1.2 10*3/uL [facility] Absolute Eosinophils 0.2 0.0 - 0.4 10*3/uL [facility] ADMINIST[facility] Absolute Basophils 0.0 0.0 - 0.1 10*3/uL [facility] 04/18/2025 8:58 AM CDT us Evette Fallon TOBACCO BUYER, ESCALATOR INSTALLER LAB SEND OUTS Fin al Result [facility] [address] [place] [address], [place] [phone] * FERRITIN (04/18/2025 8:58 AM CDT) Ferritin 149 11 - 307 ng/mL [facility] SCHEDULING ADMINISTRATOR [facility] Blood 04/18/2025 8:58 AM CDT Narrative [facility]UL[facility]MINIST[facility] - 04/18/2025 2:52 PM CDT Release to patient->Immediate Magen Plunkett MD CHEMISTRY ORDERABLES Final Result [facility] [address] [place] [address], * (ABNORMAL) CMP (COMPREHENSIVE METABOLIC PANEL) (02/20/2025 9:41 AM CDT) Glucose 100 70 - 105 mg/dL [facility] Blood Urea Nitrogen 20 7 - 25 mg/dL [facility] Creatinine 1.4(H) 0.6 - 1.2 mg/dL [facility] SCHEDULING ADMINISTRATOR [facility] Sodium 135(L) 136 - 145 mEq/L [facility] Potassium 4.4 3.5 - 5.1 mEq/L [facility] Chloride 103 98 - 107 mEq/L [facility] Bicarbonate 29 21 - 31 mEq/L [facility] Total Bilirubin 0.4 0.3 - 1.0 mg/dL [facility] SCHEDULING ADMINISTRATOR [facility] Alk. Phosphatase 52 34 - 104 U/L [facility] Aspartate Aminotransferase 18 13 - 39 U/L [facility] Alanine Aminotransferase 12 7 - 52 U/L [facility] Total Protein 6.5 6.4 - 8.9 g/dL [facility] Albumin 4.3 3.5 - 5.7 g/dL [facility] Calcium 9.7 8.6 - 10.3 mg/dL [facility] Anion Gap 7.4 7.0 - 15.0 mEq/L [facility] Globulin 2.2 2.0 - 3.5 g/dL [facility]IST[facility] EGFR 38(L) >60 ml/min/1. 73m2 [facility] Comment: This eGFR is calculated using 2020 CKD-EPI Creatinine equation without race modifier based on the NKF-ASN task force recommendations Equation: jAVC=858*min(SCr/k,1)a*max(SCr/k,1)-1.200*0.9938Age*1.012 (if female), where SCr is serum creatinine, k is 0.7 for females and 0.9 for males, and a is -0.241 for females and -0.302 for males Blood 02/20/2025 9:41 AM CDT Narrative [facility]ING [facility]MINIST[facility] - 02/20/2025 10:26 AM CDT Release to patient->Immediate IS THE PATIENT REQUIRED TO BE FASTING FOR 8 HOURS?->No Carlota Bloom APRN, ESCALATOR INSTALLER CHEMISTRY ORDERABLES Final Result Performing Organization Address City/State/[facility] Co de Phone Number [facility] SCH[facility]ULING ADMINISTR[facility] [address] [place] [address], from Last 3 Months Insurance [facility] Care Teams Brokerage Clerk Relationship Specialty Start Date End Date Natasha Brown MD [address] [place] [address] PCP - General Family Medicine 10/07/23 Negro Samayoa MD [address] [facility] [place] [address] Consulting Physician Oncology 10/07/23 Magen Plunkett MD [address] [facility] [place] [phone] Consulting Physician Oncology 11/28/24
== END 2025-04-25 13:57 | disposition home or self-care (01) ==
LOC: ANHFOHIMG 13:58
PROVIDERS: PCP Family Medicine; Visit Provider Family Medicine
DX: Z12.31 Encounter for screening mammogram for malignant neoplasm of breast (principal)
CPT/HCPCS: 77063; 77067